=== PATIENT | female | born 1955 | race Caucasian/White ===

== ENCOUNTER 2022-09-08 07:25 | Day surgery (SDC) | payer MEDICARE, OTHER, MEDICAID ==
[2022-09-08] VITALS (10 sets, daily range): BP systolic 99–128; BP diastolic 54–73
[~2022-09-08] VITALS: Ht 157.5 cm; Wt 75.0 kg
[2022-09-08 08:27] LABS: ABSOLUTE RETIC # 69 10e9/uL (24-90); BASOPHILS % (AUTO) 1 % (0-10); EOSINOPHILS # (AUTO) 0.1 10^3/uL (0.0-0.3); EOSINOPHILS % (AUTO) 3 % (0-10); HEMATOCRIT 39 % (35-52); HEMOGLOBIN 12.6 g/dL (11.5-16.0); LYMPHOCYTES # (AUTO) 0.9 10^3/uL (1.0-4.0); LYMPHOCYTES % (AUTO) 25 % (12-44); MEAN CORPUSCULAR HEMOGLOBIN 28 pg (25-34); MEAN CORPUSCULAR HGB CONC 32 g/dL (32-36); MEAN CORPUSCULAR VOLUME 86 fL (80-99); MEAN PLATELET VOLUME 9.7 fL (9.0-12.2); MONOCYTES # (AUTO) 0.5 10^3/uL (0.0-1.0); MONOCYTES % (AUTO) 13 % (0-12); NEUTROPHILS % (AUTO) 58 % (42-75); PLATELET COUNT 90 10^3/uL (130-400); RETICULOCYTE % 1.52 % (0.50-2.40); WHITE BLOOD COUNT 3.5 10^3/uL (4.3-11.0)
[2022-09-08] MEDS ORDERED: NS IV 1000 ML 1,000 ML IV STA (08:29)
[2022-09-08] MEDS ORDERED: MIDAZOLAM 2 MG/2 ML (VERSED) VIAL IVP ONE (08:30)
[2022-09-08] MEDS ORDERED: fentaNYL INJ 100 MCG/2 ML AMP IVP ONE (08:30)
[2022-09-08] MEDS ORDERED: LIDOCAINE 1% INJ 30 ML (XYLOCAINE) VIAL INJ ONE (08:30)
[2022-09-08 08:38] LABS: INR 1.2 (0.8-1.4); PROTHROMBIN TIME PATIENT 15.3 SEC (12.2-14.7)
[2022-09-08 09:01] LABS: EOSINOPHILS % (MANUAL) 3 %; LYMPHOCYTES % (MANUAL) 27 %; MONOCYTES % (MANUAL) 12 %; NEUTROPHILS % (MANUAL) 58 %
[2022-09-08] MEDS ORDERED: RT-ALBUINH INH (09:35)
[2022-09-08] MEDS ORDERED: METO-333 PO (09:54)
[2022-09-08] MEDS ORDERED: FLUT9.9S NS (09:54)
[2022-09-08] MEDS ORDERED: LISI5TAB20 PO (09:54)
[2022-09-08] MEDS ORDERED: SITA100T12 PO (09:54)
[2022-09-08] MEDS ORDERED: APIX5TAB PO (09:54)
[2022-09-08] MEDS ORDERED: CETI10CA PO (09:54)
[2022-09-08] MEDS ORDERED: DAPA10TA PO (09:54)
[2022-09-08] MEDS ORDERED: CITA20TA9 PO (09:54)
[2022-09-08] MEDS ORDERED: ATOR40TA70 PO (09:54)
[2022-09-08] MEDS ORDERED: MAGN100T5 PO (09:54)
[2022-09-08] MEDS ORDERED: LOSA50TA63 PO (09:54)
[2022-09-08] MEDS ORDERED: LACT1CAP74 PO (09:54)
[2022-09-08] MEDS ORDERED: ENOX80DI12 SQ (09:54)
[2022-09-08] MEDS ORDERED: METF-399 PO (09:54)
--- NOTE | 2022-09-08 11:13 | Diagnostic Imaging Report ---
INDICATION: Pancytopenia. Patient presents for CT-guided bone marrow aspiration and biopsy. FINDINGS: Patient was brought to the CT suite, placed on table in the prone position. Axial imaging through the pelvis was performed to evaluate appropriate entry site. The procedure was performed utilizing conscious sedation with radiology nursing and constant patient monitoring. Patient was given a total of 50 mcg of fentanyl intravenously and 1 mg of Versed intravenously. Total procedure time was 3 minutes. Low back was prepped and draped in the usual sterile fashion. Small amount of 1% lidocaine was utilized for local anesthesia. Bone marrow biopsy needle was advanced and placed with its tip along the posterior cortex of the right iliac bone. The needle was advanced through the cortex utilizing the bone marrow drill. Two bone marrow aspirates were then obtained. Next, bone marrow drill was utilized to obtain a bone marrow core biopsy. The needle was removed and hemostasis was obtained using manual compression. Patient tolerated the procedure well and left the department in stable condition. IMPRESSION: Successful CT-guided bone marrow aspiration and core biopsy utilizing conscious sedation. Pathology results are currently pending. Dictated by: Dictated on workstation # [id number]
--- NOTE | 2022-09-08 12:45 | Pre-Op Note & Conscious Sedat ---
Pre-Operative Progress Note Date of Available H&P: Sep 08, 2022 Date H&P Reviewed: Sep 08, 2022 Time H&P Reviewed: 09:00 Pre-Op Diagnosis: pancytopenia Moderate Sedation PreProcedure Time 09:00 ASA Score 2 Airway Lungs Heart ASA score ASA 1: a normal healthy patient ASA 2: a patient with a mild systemic disease (mid diabetes, controlled hypertension, obesity ASA 3: a patient with a severe systemic disease that limits activity (angina, COPD, prior Myocardial infarction) ASA 4: a patient with an incapacitating disease that is a constant threat to life (CHF, renal failure) ASA 5: a moribund patient not expected to survive 24 hrs. (ruptured aneurysm) ASA 6: a declared brain- patient whose organs are being harvested. For emergent operations, add the letter E after the classification Mallampati Classification Grade 2 Sedation Plan Analgesia, Amnesia, Plan communicated to team members, Discussed options with patient/fam, Discussed risks with patient/fam The patient is an appropriate candidate to undergo the planned procedure, sedation, and anesthesia. The patient immediately re-assessed prior to indication. GETACHEW VALADEZ MD Sep 08, 2022 12:45
== END 2022-09-08 12:45 | disposition home or self-care (01) ==
LOC: RAD 07:25
PROVIDERS: ATTEND Internal Medicine Hematology & Oncology
DX: D61.818 Other pancytopenia (principal); D72.819 Decreased white blood cell count, unspecified; D69.6 Thrombocytopenia, unspecified; K58.9 Irritable bowel syndrome, unspecified; I25.10 Atherosclerotic heart disease of native coronary artery without angina pectoris; E66.9 Obesity, unspecified; E11.9 Type 2 diabetes mellitus without complications; Z79.01 Long term (current) use of anticoagulants; Z90.49 Acquired absence of other specified parts of digestive tract; Z68.30 Body mass index [BMI] 30.0-30.9, adult
CPT/HCPCS: 36415; 38222; 77012; 85007; 85027; 85045; 85055; 85610; 85730; 99156

== ENCOUNTER 2022-09-18 12:46 | Outpatient (RCR) | payer MEDICARE, OTHER, MEDICAID ==
[2022-08-24 15:23] LABS: BASOPHILS % (AUTO) 0 % (0-10); EOSINOPHILS # (AUTO) 0.1 10^3/uL (0.0-0.3); EOSINOPHILS % (AUTO) 4 % (0-10); HEMATOCRIT 41 % (35-52); HEMOGLOBIN 13.1 g/dL (11.5-16.0); LYMPHOCYTES # (AUTO) 0.8 X 10^3 (1.0-4.0); LYMPHOCYTES % (AUTO) 23 % (12-44); MEAN CORPUSCULAR HEMOGLOBIN 28 pg (25-34); MEAN CORPUSCULAR HGB CONC 32 g/dL (32-36); MEAN CORPUSCULAR VOLUME 87 fL (80-99); MEAN PLATELET VOLUME 9.3 fL (9.0-12.2); MONOCYTES # (AUTO) 0.4 X 10^3 (0.0-1.0); MONOCYTES % (AUTO) 12 % (0-12); NEUTROPHILS # (AUTO) 2.1 X 10^3 (1.8-7.8); NEUTROPHILS % (AUTO) 61 % (42-75); PLATELET COUNT 63 10^3/uL (130-400); WHITE BLOOD COUNT 3.5 10^3/uL (4.3-11.0)
[2022-08-24 15:32] LABS: ALBUMIN 3.8 GM/DL (3.2-4.5); BILIRUBIN,TOTAL 0.8 MG/DL (0.1-1.0); CALCIUM 9.7 MG/DL (8.5-10.1); CREATININE SERUM 0.71 MG/DL (0.60-1.30); POTASSIUM 4.3 MMOL/L (3.6-5.0); TOTAL PROTEIN 7.2 GM/DL (6.4-8.2)
[~2022-09-18 12:46] MED LIST: APIX5TAB PO; ATOR40TA70 PO; CETI10CA PO; CITA20TA9 PO; DAPA10TA PO; ENOX80DI12 SQ; FLUT9.9S NS; LACT1CAP74 PO; LISI5TAB20 PO; LOSA50TA63 PO; MAGN100T5 PO; METF-399 PO; METO-333 PO; RT-ALBUINH INH; SITA100T12 PO
== END 2022-09-22 | disposition home or self-care (01) ==
LOC: ONC 12:46
PROVIDERS: ATTEND Internal Medicine Hematology & Oncology
DX: D61.818 Other pancytopenia (principal); E66.9 Obesity, unspecified; E11.9 Type 2 diabetes mellitus without complications; Z95.5 Presence of coronary angioplasty implant and graft; Z90.49 Acquired absence of other specified parts of digestive tract
CPT/HCPCS: 80053; 85025

== ENCOUNTER 2023-01-08 13:02 | Outpatient (RCR) | payer MEDICARE, OTHER, MEDICAID ==
[2023-01-08 13:21] LABS: MEAN CORPUSCULAR HGB CONC 33 g/dL (32-36)
[2023-01-08 13:23] LABS: BASOPHILS % (AUTO) 1 % (0-10); EOSINOPHILS # (AUTO) 0.1 10^3/uL (0.0-0.3); EOSINOPHILS % (AUTO) 2 % (0-10); HEMATOCRIT 42 % (35-52); HEMOGLOBIN 13.8 g/dL (11.5-16.0); LYMPHOCYTES % (AUTO) 36 % (12-44); MEAN CORPUSCULAR HEMOGLOBIN 28 pg (25-34); MEAN CORPUSCULAR VOLUME 86 fL (80-99); MEAN PLATELET VOLUME 9.5 fL (9.0-12.2); MONOCYTES # (AUTO) 0.3 10^3/uL (0.0-1.0); MONOCYTES % (AUTO) 10 % (0-12); NEUTROPHILS # (AUTO) 1.4 10^3/uL (1.8-7.8); NEUTROPHILS % (AUTO) 51 % (42-75); PLATELET COUNT 82 10^3/uL (130-400); WHITE BLOOD COUNT 2.8 10^3/uL (4.3-11.0)
[2023-01-08 13:41] LABS: ALBUMIN 4.2 GM/DL (3.2-4.5); BILIRUBIN,TOTAL 0.9 MG/DL (0.1-1.0); CALCIUM 9.8 MG/DL (8.5-10.1); CREATININE SERUM 0.71 MG/DL (0.60-1.30); POTASSIUM 4.7 MMOL/L (3.6-5.0); TOTAL PROTEIN 8.1 GM/DL (6.4-8.2)
== END 2023-01-22 | disposition home or self-care (01) ==
LOC: ONC 13:02
PROVIDERS: ATTEND Internal Medicine Hematology & Oncology
DX: D72.819 Decreased white blood cell count, unspecified (principal); K58.9 Irritable bowel syndrome, unspecified; D61.818 Other pancytopenia; E66.9 Obesity, unspecified; E11.9 Type 2 diabetes mellitus without complications; D69.6 Thrombocytopenia, unspecified; I25.10 Atherosclerotic heart disease of native coronary artery without angina pectoris; Z95.5 Presence of coronary angioplasty implant and graft; Z90.49 Acquired absence of other specified parts of digestive tract
CPT/HCPCS: 36415; 80053; 85025

== ENCOUNTER 2023-04-13 09:26 | Outpatient (RCR) | payer MEDICARE, OTHER, MEDICAID ==
[2023-04-05 09:30] LABS: BASOPHILS % (AUTO) 0 % (0-10)
[2023-04-05 09:32] LABS: EOSINOPHILS # (AUTO) 0.1 10^3/uL (0.0-0.3); EOSINOPHILS % (AUTO) 3 % (0-10); HEMATOCRIT 43 % (35-52); HEMOGLOBIN 13.5 g/dL (11.5-16.0); LYMPHOCYTES # (AUTO) 0.8 10^3/uL (1.0-4.0); LYMPHOCYTES % (AUTO) 34 % (12-44); MEAN CORPUSCULAR HEMOGLOBIN 28 pg (25-34); MEAN CORPUSCULAR HGB CONC 32 g/dL (32-36); MEAN CORPUSCULAR VOLUME 90 fL (80-99); MEAN PLATELET VOLUME 9.5 fL (9.0-12.2); MONOCYTES # (AUTO) 0.3 10^3/uL (0.0-1.0); MONOCYTES % (AUTO) 13 % (0-12); NEUTROPHILS # (AUTO) 1.2 10^3/uL (1.8-7.8); NEUTROPHILS % (AUTO) 51 % (42-75); PLATELET COUNT 71 10^3/uL (130-400); WHITE BLOOD COUNT 2.4 10^3/uL (4.3-11.0)
[2023-04-05 09:49] LABS: BILIRUBIN,TOTAL 0.8 MG/DL (0.1-1.0); CREATININE SERUM 0.7 MG/DL (0.60-1.30); POTASSIUM 4.4 MMOL/L (3.6-5.0); TOTAL PROTEIN 7.4 GM/DL (6.4-8.2)
== END 2023-04-24 | disposition home or self-care (01) ==
LOC: ONC 09:26
PROVIDERS: ATTEND Internal Medicine Hematology & Oncology
DX: D72.819 Decreased white blood cell count, unspecified (principal); D61.818 Other pancytopenia; E66.9 Obesity, unspecified; E11.9 Type 2 diabetes mellitus without complications; D69.6 Thrombocytopenia, unspecified; I25.10 Atherosclerotic heart disease of native coronary artery without angina pectoris; Z95.5 Presence of coronary angioplasty implant and graft; Z90.49 Acquired absence of other specified parts of digestive tract
CPT/HCPCS: 36415; 80053; 85025; 99214